=== PATIENT | female | born 1975 | race Caucasian/White ===

== ENCOUNTER → 2019-12-21 12:03 | Outpatient (CLI) | payer OTHER, SELFPAY ==
--- NOTE | ~2019-12-21 | MM_ITS ---
EXAMINATION: MM screening mey BI w unique HISTORY: Screening mammogram TECHNIQUE: Craniocaudal and mediolateral oblique 3-D tomosynthesis images were obtained and synthetic 2-D images were generated. CAD analysis was submitted and interpreted. COMPARISON: 08/05/2018, 07/08/2017, bilateral digital screening mammogram examinations BREAST PARENCHYMAL COMPOSITION: There are scattered areas of fibroglandular density. FINDINGS: There is no evidence of suspicious mass, calcification, or architectural distortion to sugg est malignancy in either breast. There has been no suspicious interval change. IMPRESSION: 1. No mammographic evidence of malignancy. 2. Recommend routine screening mammography in one year. BI-RADS Category 1: Negative Reviewed, dictated and finalized at location A.
== END ==
PROVIDERS: Visit Provider Advanced Practice Midwife
DX: Z12.31 Encounter for screening mammogram for malignant neoplasm of breast (principal)
CPT/HCPCS: 77063; 77067

== ENCOUNTER → 2021-01-11 16:23 | Outpatient (CLI) | payer OTHER, SELFPAY ==
--- NOTE | ~2021-01-11 | MM_ITS ---
EXAMINATION: MM screening mey BI w unique HISTORY: Screening TECHNIQUE: Craniocaudal and mediolateral oblique 3-D tomosynthesis images were obtained and synthetic 2-D images were generated. CAD analysis was submitted and interpreted. COMPARISON: Comparison to multiple prior studies sequentially, with oldest reviewed study dated 05/31. BREAST PARENCHYMAL COMPOSITION: The breasts are heterogeneously dense, which may obscure small masses . FINDINGS: There are developing asymmetries in the right breast. The left breast is stable without jamie dence for malignancy. IMPRESSION: 1. Developing right breast asymmetries in the upper aspect of the right breast, best seen on MLO view . 2. Additional mammographic views and possible breast ultrasound are recommended. BI-RADS Category 0: Incomplete: Needs additional imaging evaluation. Reviewed, dictated and finalized at location A. IMPRESSION: 1. Developing right breast asymmetries in the upper aspect of the right breast, best seen on MLO view. 2. Additional mammographic views and possible breast ultrasound are recommended . BI-RADS Category 0: Incomplete: Needs additional imaging evaluation.
== END ==
PROVIDERS: Visit Provider Advanced Practice Midwife
DX: Z12.31 Encounter for screening mammogram for malignant neoplasm of breast (principal); R92.8 Other abnormal and inconclusive findings on diagnostic imaging of breast
CPT/HCPCS: 77063; 77067

== ENCOUNTER 2021-02-01 12:24 | Outpatient (CLI) | payer BC, SELFPAY ==
--- NOTE | ~2021-02-01 | MMUS_ITS ---
EXAMINATION: MM diagnostic mey RT w unique, US breast RT limited HISTORY: Follow-up right breast asymmetries TECHNIQUE: Additional 3-D tomosynthesis images of the right breast were performed and synthetic 2-D i mages were generated. CAD analysis was submitted and interpreted. High resolution Limited right breas t ultrasound was performed. COMPARISON: 01/11/2021 BREAST PARENCHYMAL COMPOSITION: The breasts are heterogenously dense, which may obscure small masses. FINDINGS: MAMMOGRAPHIC FINDINGS: There are no discrete masses, calcifications or architectural distortion in the right breast. There a re persistent asymmetries centrally in the right breast on CC view. ULTRASOUND: Limited right breast ultrasound: Multiple cysts are identified in the right breast, largest measuring 8 mm. No suspicious masses to suggest malignancy. IMPRESSION: 1. No evidence for malignancy in the right breast. Benign cysts. 2. Routine yearly screening mammogram and regular clinical breast examination are recommended. BI-RADS Category 2: Benign finding(s). Reviewed, dictated and finalized at location A. IMPRESSION: 1. No evidence for malignancy in the right breast. Benign cysts. 2. Routine yearly screening mammogram and regular clinical breast examination a re recommended. BI-RADS Category 2: Benign finding(s).
== END 2021-02-01 12:25 | disposition home or self-care (01) ==
LOC: ANHIMG 12:29
PROVIDERS: PCP Family Medicine; Visit Provider Advanced Practice Midwife
DX: R92.8 Other abnormal and inconclusive findings on diagnostic imaging of breast (principal)
CPT/HCPCS: 76642; 77061; 77065; G0279

== ENCOUNTER → 2022-04-23 13:43 | Outpatient (CLI) | payer BC, SELFPAY ==
--- NOTE | ~2022-04-23 | MM_ITS ---
EXAMINATION: MM screening mey BI w unique HISTORY: Screening TECHNIQUE: Craniocaudal and mediolateral oblique 3-D tomosynthesis images were obtained and synthetic 2-D images were generated. CAD analysis was submitted and interpreted. COMPARISON: No prior mammogram is available for comparison at this institution. BREAST PARENCHYMAL COMPOSITION: The breasts are heterogeneously dense, which may obscure small masses . FINDINGS: There is a possible mass in the upper outer quadrant of the left breast which is obscured b y fibroglandular tissue. The right breast is stable without evidence for malignancy. IMPRESSION: 1. Possible left breast mass, upper outer quadrant. 2. Additional mammographic views and possible breast ultrasound are recommended. BI-RADS Category 0: Incomplete: Needs additional imaging evaluation. Reviewed, dictated and finalized at location A. AGATION WORKER IMPRESSION: 1. Possible left breast mass, upper outer quadrant. 2. Additional mammographic views and possible breast ultrasound are recommended . BI-RADS Category 0: Incomplete: Needs additional imaging evaluation.
== END ==
PROVIDERS: PCP Family Medicine; Visit Provider Advanced Practice Midwife
DX: Z12.31 Encounter for screening mammogram for malignant neoplasm of breast (principal); R92.8 Other abnormal and inconclusive findings on diagnostic imaging of breast
CPT/HCPCS: 77063; 77067

== ENCOUNTER → 2022-06-09 08:34 | Outpatient (CLI) | payer BC, SELFPAY ==
--- NOTE | ~2022-06-09 | MMUS_ITS ---
EXAMINATION: MM diagnostic mey LT w unique, US breast LT limited HISTORY: Possible left breast mass reported in upper outer quadrant on 04/23/2022 screening mammogram TECHNIQUE: Additional 3-D tomosynthesis images of the left breast were performed and synthetic 2-D im ages were generated. CAD analysis was submitted and interpreted. High resolution left upper outer rafael drant breast ultrasound examination was performed. COMPARISON: 04/23/2022 bilateral screening mammogram FINDINGS: MAMMOGRAPHIC FINDINGS: No suspicious mass or architectural distortion, skin thickening or retraction or malignant calcificat ion is noted. ULTRASOUND: Occasional small circumscribed sonolucent or hypoechoic lesions are identified, including 1.6 x 3 x 4 .3 mm cyst at 12:00 4 cm from nipple, 1.4 x 4.2 mm cyst at 1:00 5 cm from nipple and 3.8 x 6.2 mm cys t and 2.1 x 3.4 mm cyst at 2:00 4 cm from nipple Bilateral circumscribed 1.6 x 5 mm hypoechoic lesion without internal vascularity or posterior shadow ing, benign in appearance 2.4 x 2.7 mm circumscribed hypoechoic lesion in the subareolar area. No suspicious mass or shadowing is evident. IMPRESSION: 1. Probable benign findings 2. 6 month left breast ultrasound follow-up examination is recommended BI-RADS category 3, probably benign findings. Reviewed, dictated and finalized at location A. T DESK AGENT IMPRESSION: 1. Probable benign findings 2. 6 month left breast ultrasound follow-up examination is recommended BI-RADS category 3, probably benign findings.
== END ==
PROVIDERS: PCP Family Medicine; Visit Provider Advanced Practice Midwife
DX: R92.8 Other abnormal and inconclusive findings on diagnostic imaging of breast (principal)
CPT/HCPCS: 76642; 77061; 77065; G0279

== ENCOUNTER 2024-03-29 15:01 | Emergency (ER) | payer OTHER, SELFPAY ==
--- NOTE | ~2024-03-29 | XR_ITS ---
XR foot LT min 3V Ordering provider: Kylee Mckeon NP History: . fall 2 days ago, pain/bruising dorsal/lat Lt foot/ankle . Comparison: None. FINDINGS: BONES: Fracture at the base of the fifth metatarsal bone. JOINT SPACES: Normal. No tarsal coalition. SOFT TISSUES: Calcaneus spur. Ossification of the insertion of Achilles. IMPRESSION: No acute osseous abnormality left foot. Reviewed, dictated and finalized at location A. GE RUNNER
--- NOTE | ~2024-03-29 | XR_ITS ---
XR ankle LT min 3V Ordering provider: Kylee Mckeon NP History: . injury thursday fell, Lt foot/ankle pain/bruising . Comparison: None. FINDINGS: BONES: Fracture of the base of the fifth metatarsal bone Calcaneus spur. Ossification of the insertion of the tendo Achilles. JOINT SPACES: The ankle mortise is normal. SOFT TISSUES: Normal. IMPRESSION: Fracture of the base of the fifth metatarsal bone. Reviewed, dictated and finalized at location A. D BANK ATTENDANT
[2024-03-29 15:15] VITALS: BP 128/93; PULSE 101; RESP 18; TEMP 36.6; O2SAT 98
--- NOTE | 2024-03-29 15:33 | ED.LOWEXIN ---
HPI - Extremity Injury (Lower) General Chief Complaint: Extremity Injury, Lower Stated Complaint: L FOOT/ANKLE INJURY Time Seen by Provider: 03/29/24 15:30 Source: patient, RN notes reviewed and old records reviewed Mode of arrival: ambulatory Limitations: no limitations History of Present Illness HPI Narrative: 49 year old female who presents to [facility] care with complaints of injury to her left foot and ankle 3 days ago when she hit left foot on the edge of stairs and bent foot underneath self while stepping down into garage. Patient reports pain to the lateral foot and ankle with noted swelling. Patient reports that she has been using crutches for ambulation is unable to bear weight onto left foot. Patient had right knee injury and is presently attending therapy for that injury at present time with much improvement patient reports. Swelling is present to left lateral foot with some extension to ankle, strong pedal and posterior pulses present. Patient has applied ice to foot and is on daily Meloxicam and has taken Tylenol for pain. MD complaint: ankle injury (left) and foot injury (left) Onset (ago): day(s) (3) Injury: Left: ankle and foot (lateral) Place: home Severity scale (1-10): 4 Treatments prior to arrival: cold therapy and other (meloxicam Tylenol) Related Data Home Medications Medication Instructions Recorded Confirmed atorvastatin 10 mg tablet 10 mg PO DAILY 03/15/24 03/29/24 cetirizine 10 mg tablet (All Day 10 mg PO DAILY 03/15/24 03/29/24 Allergy (cetirizine)) meloxicam 15 mg tablet 15 mg PO DAILY 03/15/24 03/29/24 Allergies Allergy/AdvReac Type Severity Reaction Status Date / Time No Known Allergies Allergy Unknown Verified 03/29/24 15:31 Review of Systems Review of Systems: CONSTITUTIONAL: Denies fever, chills, or sweats. EYES: Denies visual changes, redness, or discharge. ENT: Denies rhinorrhea, congestion, sore throat, or otalgia. CARDIOVASCULAR: Denies chest pain, palpitations, or edema. RESPIRATORY: Denies cough or dyspnea. GASTROINTESTINAL: Denies abdominal pain, nausea, vomiting, or diarrhea. GENITOURINARY: Denies dysuria or hematuria. SKIN: Denies rash or itching. MUSCULOSKELETAL: Denies back pain, positive for left lateral foot and ankle swelling and discomfort., or myalgia. NEUROLOGIC: Denies headache, numbness, or weakness. PSYCHIATRIC: Denies anxiety or depression. All systems reviewed & are unremarkable except as noted in HPI and below PMFSH Past Medical History Medical History Hyperlipidemia Migraine Raynauds phenomenon Right knee injury Surgical History Surgical History H/O surgical removal of Bartholin’s gland cyst Family History Family History Mother Cancer Father Cancer Heart disease Sibling Depression Anxiety Social History Social History Smoking status: Never smoker Second hand tobacco smoke exposure: No Alcohol intake: never Substance use: never Substance use type: does not use Do You Feel Safe in your Home?: Yes Lack of Transportation: No Lack of Food: Never True Current Housing: I Do Not Have Housing Concerned About Future Housing: No Difficulty Paying Gas/Electric Bills: No Difficulty Paying for Meds: No Living arrangements: with family Gender identity (if verbalized by the patient): Female Sexual Orientation (if Verbalized by the Patient): Straight or Heterosexual Agree to blood products: Yes Comments At time of signature, agree with nursing past medical, surgical, social and family history. There is no relevant family history pertinent to the presenting complaint Exam Narrative: GENERAL: Well-appearing, well-nourished, and in no acute distress. HEAD: Normocephalic, atraumatic. EYES: PERRLA and EOMI. ENT: Nares clear, no rhinorrhea or epistaxis. Mucous membranes moist.TM's normal, throat pink with no lesions NECK: Supple.no lymphadenopathy CHEST: Clear to auscultation. No respiratory distress.SAO2 98% on room air HEART: Regular rate and rhythm. No murmur heard. Normal peripheral pulses. ABDOMEN: Soft, nontender, nondistended, normal active bowel sounds. EXTREMITIES: Normal range of motion. No edema.Exception noted to lateral eft foot swelling and pain and some edema to lateral left ankle from injury, circulation and sensation is intact,pain increases with attempted mobility,unable to bear weight to left foot. SKIN: Warm, dry, no rash. NEURO: No focal deficits. Alert and oriented x3. Course Course Emergency Course: Patient is aware of diagnosis, understands and agrees to treatment plan.? Anticipatory guidance given.? Patient agrees to follow-up as directed and is aware of reasons to seek care at the emergency department. Portions of this record may have been created with voice recognition software Level of Care: Express Care Visit Vital Signs Vital signs: Vital Signs Temperature 36.6 C 03/29/24 15:15 Pulse Rate 101 H 03/29/24 15:15 Respiratory Rate 18 03/29/24 15:15 Blood Pressure 128/93 H 03/29/24 15:15 Pulse Oximetry 98 03/29/24 15:15 Oxygen Delivery Room Air 03/29/24 15:15 Temperature 36.6 C 03/29/24 15:15 Pulse Rate 101 H 03/29/24 15:15 Respiratory Rate 18 03/29/24 15:15 Blood Pressure 128/93 H 03/29/24 15:15 Pulse Oximetry 98 03/29/24 15:15 Oxygen Delivery Room Air 03/29/24 15:15 Reviewed MDM - Extremity Injury (Lower) Differential Diagnosis Differential diagnosis: Likely ankle sprain and strain, fracture of toe, ankle fracture and other (foot sprain, fracture base of 5th metarsal bone left foot) Medical Records Attestation: I reviewed the patient's medical records. Imaging Data Attestation: I personally reviewed and interpreted this imaging study as follows: My impression: left ankle mortise normal non displaced fracture of base of 5th metatarsal bone left foot Radiologist's impression: Launch?[facility] [address] [place] [address] XRay Report Signed with Addenda Patient: Kathy Mojica : 1975 MR#: [id number] Age: 49 Acct:[id number] Loc: [facility] ADM Date: 03/29/24Attending Dr: Ordering Physician: Kylee Mckeon APRN Date of Service: 03/29/24 Procedure(s): XR foot LT min 3V Accession Number(s): [id number] cc: Fransisca Fields MD; Linda, Kylee L. DIXONAC OPERATOR~ ADDENDUMUndisplaced Fracture in the left fifth metatarsal bone base. ARD/STEWARDESS THIRD Addendum Dictated By: Floyd Mccain MD Addendum Signed By: <Electronically signed by Floyd Mccain MD in OV> 03/29/249 Addendum Cosigned By: DD/ TD/TT: / XR foot LT min 3V Ordering provider: Kylee Mckeon NP History: . fall 2 days ago, pain/bruising dorsal/lat Lt foot/ankle . Comparison: None. FINDINGS: BONES: Fracture at the base of the fifth metatarsal bone. JOINT SPACES: Normal. No tarsal coalition. SOFT TISSUES: Calcaneus spur. Ossification of the insertion of Achilles. IMPRESSION: No acute osseous abnormality left foot. Reviewed, dictated and finalized at location A. ARD/STEWARDESS THIRD Dictated By: Floyd Mccain MD 03/29/24 1552 Signed By: <Electronically signed by Floyd Mccain MD in OV> 03/29/[address] [place] [address] XRay Report Signed Patient: Kathy Mojica : 1975 MR#: [id number] Age: 49 Acct:[id number] Loc: [facility] ADM Date: 03/29/24Attending Dr: Ordering Physician: Kylee Mckeon APRN Date of Service: 03/29/24 Procedure(s): XR ankle LT min 3V Accession Number(s): [id number] cc: Fransisca Fields MD; Linda, Kylee L. DIXONAC OPERATOR~ XR ankle LT min 3V Ordering provider: Kylee Mckeon NP History: . injury thursday fell, Lt foot/ankle pain/bruising . Comparison: None. FINDINGS: BONES: Fracture of the base of the fifth metatarsal bone Calcaneus spur. Ossification of the insertion of the tendo Achilles. JOINT SPACES: The ankle mortise is normal. SOFT TISSUES: Normal. IMPRESSION: Fracture of the base of the fifth metatarsal bone. Reviewed, dictated and finalized at location A. ARD/STEWARDESS THIRD Dictated By: Floyd Mccain MD 03/29/24 1603 Signed By: <Electronically signed by Floyd Mccain MD in OV> 03/29/24 1605 Critical Care Time Critical Care Time Critical Care Time: No Discharge Plan Discharge Clinical Impression: Fracture of base of fifth metatarsal bone Qualifiers: Encounter type: initial encounter Fracture type: closed Laterality: left Qualified Code(s): S92.352A - Displaced fracture of fifth metatarsal bone, left foot, initial encounter for closed fracture Patient Disposition: Home, Self-Care Condition: Stable Instructions: Antibiotic Form, Foot Fracture in Adults (ED) Additional Instructions: dany wrap and orthopedic shoe Crutches as directed as needed to decrease weight on left foot Tylenol for lesser pain continue your meloxicam as ordered Follow-up with PCP if further problems or concerns Ice to the area 20-30 minutes 4-6 times a day Elevate above heart Follow yup with your ortho doctor call him for appointment to set for next week If your symptoms persist, change or worsen significantly before you can contact your personal physician then please, without delay, go to the emergency department for further evaluation. Follow-up with PCP in 7-10 days or sooner if needed Follow up with PCP soon in regards to your blood pressure which is elevated above threshold for referral. Blood pressure above 120/80 may indicate pre-hypertension. Prescriptions: No Action atorvastatin 10 mg tablet 10 mg PO DAILY cetirizine [All Day Allergy (cetirizine)] 10 mg tablet 10 mg PO DAILY meloxicam 15 mg tablet 15 mg PO DAILY Follow-up/Referrals: Fransisca Fields MD [Primary Care Provider] - Time of Disposition: 17:01 Quality [place] Scale Eyes: Open Verbal: Oriented and Alert Motor: Follows Commands [place] Total Score: 15
== END 2024-03-29 17:10 | disposition home or self-care (01) ==
PROVIDERS: Emergency Provider Registered Nurse; PCP Family Medicine
DX: S92.352A Displaced fracture of fifth metatarsal bone, left foot, initial encounter for closed fracture (principal); Z79.899 Other long term (current) drug therapy; Z79.1 Long term (current) use of non-steroidal anti-inflammatories (NSAID); E78.5 Hyperlipidemia, unspecified; X50.0XXA Overexertion from strenuous movement or load, initial encounter
CPT/HCPCS: 73610; 73630; 99214; G0463

== ENCOUNTER 2024-05-19 15:02 | Outpatient (CLI) | payer OTHER, SELFPAY ==
--- NOTE | ~2024-05-19 | MM_ITS ---
EXAMINATION: MM screening mey BI w unique HISTORY: Screening TECHNIQUE: Craniocaudal and mediolateral oblique 3-D tomosynthesis images were obtained and synthetic 2-D images were generated. CAD analysis was submitted and interpreted. COMPARISON: Comparison to multiple prior studies sequentially, with oldest reviewed study dated 08/2018. BREAST PARENCHYMAL COMPOSITION: Dense: The breasts are heterogeneously dense, which may obscure small masses FINDINGS: There is no evidence of suspicious mass, calcification, or architectural distortion to sugg est malignancy in either breast. There has been no suspicious interval change. IMPRESSION: 1. No mammographic evidence of malignancy. 2. Recommend routine screening mammography in one year. BI-RADS Category 1: Negative Reviewed, dictated and finalized at location A. CTOR OF EVENT MANAGEMENT
== END 2024-05-19 15:03 | disposition home or self-care (01) ==
LOC: CHSIMG 15:04
PROVIDERS: PCP Family Medicine; Visit Provider Family Medicine
DX: Z12.31 Encounter for screening mammogram for malignant neoplasm of breast (principal)
CPT/HCPCS: 77063; 77067